=== PATIENT | female | born 1965 | race Two or more races ===

== ENCOUNTER 2018-02-07 19:09 | Emergency (ER) | payer BC ==
[~2018-02-07] VITALS: Ht 162.6 cm; Wt 67.6 kg
[2018-02-07] MEDS ORDERED: DIPH,PERTUSS(ACELL),TET VAC/PF 0.5 ML IM-VACC ONE ×2 (19:30→19:36)
[2018-02-07] MEDS ORDERED: LIDOCAINE 1%-EPI 1:100K, 20ML SQ ONE (19:30)
[2018-02-07] MEDS ORDERED: LIDOCAINE 1%-EPI 1:100K, 20ML ONE (19:34)
[2018-02-07] MEDS ORDERED: BACITRACIN ZINC OINT 500U/GM, 0.9 GM ONE ×2 (21:05→21:06)
[2018-02-07 21:59] VITALS: BP 119/68
[2018-02-07] MEDS ORDERED: IBUPROFEN 200 MG TABLET PO ONE (22:00)
[2018-02-07] MEDS ORDERED: IBUPROFEN 200 MG TABLET ONE (22:02)
== END 2018-02-07 22:14 | disposition home or self-care (01) ==
LOC: ED 21:45
DX: S01.81XA Laceration without foreign body of other part of head, initial encounter (principal); W07.XXXA Fall from chair, initial encounter; Y93.89 Activity, other specified; Y92.009 Unspecified place in unspecified non-institutional (private) residence as the place of occurrence of the external cause; Y99.8 Other external cause status
CPT/HCPCS: 12054; 70450; 90471; 90715

== ENCOUNTER 2018-02-20 18:35 | Emergency (ER) | payer BC ==
[~2018-02-20] VITALS: Ht 162.6 cm; Wt 68.9 kg
[2018-02-20 18:38] VITALS: BP 114/27
== END 2018-02-20 19:22 | disposition home or self-care (01) ==
LOC: ED 19:05
DX: S01.81XD Laceration without foreign body of other part of head, subsequent encounter (principal); X58.XXXD Exposure to other specified factors, subsequent encounter; Z90.89 Acquired absence of other organs
CPT/HCPCS: 99281